=== PATIENT | male | born 1965 | race African-American/Black ===

== ENCOUNTER 2018-04-03 08:18 | Day surgery (SDC) | payer OTHER ==
[2018-04-03] VITALS (11 sets, daily range): BP systolic 106–143; BP diastolic 66–85
[~2018-04-03] VITALS: Ht 180.3 cm; Wt 122.5 kg
--- NOTE | 2018-04-03 07:01 | Pre-Procedure Note/Attestation ---
Pre-Procedure Note/Attestation Complete Prior to Procedure Planned Procedure: right Procedure Narrative: rt ankle hardware removal Indications for Procedure Pre-Operative Diagnosis: rt ankle syndesmotic screw Attestation I attest that I discussed the nature of the procedure; its benefits; risks and complications; and alternatives (and the risks and benefits of such alternatives ), prior to the procedure, with the patient (or the patient's legal energy conservation representative). I attest that, if there was a reasonable possibility of needing a blood transfusion, the patient (or the patient's legal energy conservation representative) was given the [facility] standardized written summary, pursuant to the [place] Blood Safety Act ([place] Health and Safety Code # 1645, as amended). I attest that I re-evaluated the patient just prior to the surgery and that there has been no change in the patient's H&P, except as documented below: none Avelino Zhu MD April 03, 2018 07:01
[~2018-04-03 08:18] MED LIST: AMLODIPINE BESY10 MG ORAL; PRAZOSIN HCL2 MG PO; ceFAZolin 1 GM premix IV ONE; ceFAZolin sod 2 GM in D5W 110 ML IVP ONE; oxyCONTIN 20mg tab ORAL SCH
[2018-04-03] MEDS ORDERED: Bacitracin 50000 Units Vial ONE (08:22)
[2018-04-03] MEDS ORDERED: Bupivacaine 0.5% Inj 30 ml vial INJ ONE (08:22)
[2018-04-03] MEDS ORDERED: NeoSporin Gu Irrig 1ml Amp IRRIG ONE (08:22)
[2018-04-03] MEDS ORDERED: EPINEPHrine 1mg/1ml Amp ONE (08:22)
[2018-04-03] MEDS ORDERED: fentaNYL 100 mcg/2 mL IV ONE (08:41)
[2018-04-03] MEDS ORDERED: Propofol 200mg/20ml IV ONE ×2 (08:41→09:29)
[2018-04-03] MEDS ORDERED: Dexamethasone 4mg/ml vial ONE (08:41)
[2018-04-03] MEDS ORDERED: Sterile Water Irrig 1000ml IRRIG ONE (09:00)
[2018-04-03] MEDS ORDERED: NS Irrig 1000ml ONE (09:00)
[2018-04-03] MEDS ORDERED: celeBREX 200mg Cap **SURGERY PATIENTS ONLY ORAL SCH ×2 (09:00)
[2018-04-03] MEDS ORDERED: Lidocaine 1% MPF 10mg/ml 5ml ONE (09:00)
[2018-04-03] MEDS ORDERED: LR 1000ml ONE (09:00)
--- NOTE | 2018-04-03 09:02 | Anethesia Preoperative Eval ---
Anesthesia Pre-op PMH/ROS General Date of Evaluation: April 03, 2018 Time of Evaluation: 08:45 Anesthesiologist: ASA Score: ASA 2 Mallampati Score Class I : Soft palate, uvula, fauces, pillars visible Class II: Soft palate, uvula, fauces visible Class III: Soft palate, base of uvula visible Class IV: Only hard plate visible Mallampati Classification: Class II Surgeon: brett Diagnosis: hardware right ankle Surgical Procedure: right ankle hardwre removal Anesthesia History: none Family History: no anesthesia problems Allergies: Coded Allergies: No Known Allergies (Unverified , 04/02/18) Medications: see eMAR Past Medical History Cardiovascular: Reports: HTN Pulmonary: Denies: asthma, COPD, STEPHAN, other Gastrointestinal/Genitourinary: Denies: GERD, CRI, ESRD, other Neurologic/Psychiatric: Denies: dementia, CVA, depression/anxiety, TIA, other Endocrine: Denies: DM, hypothyroidism, steroids, other HEENT: Denies: cataract (L), cataract (R), glaucoma, TABLE MOUNTAIN (L), TABLE MOUNTAIN (R), other Hematology/Immune: Denies: anemia, DVT, bleeding disorder, other Musculoskeletal/Integumentary: Denies: OA, RA, DJD, DDD, edema, other PSxH Narrative: rt.shoulder, left knee right ankle Anesthesia Pre-op Phys. Exam Physician Exam Last Vital Signs Date Time Temp Pulse Resp B/P (MAP) Pulse Ox O2 Delivery O2 Flow Rate FiO2 04/03/18 08:47 98.0 62 20 142/82 99 Room Air 98.0 Constitutional: NAD Cardiovascular: RRR Respiratory: CTA Gastrointestinal: S/NT/ND Airway Exam Mallampati Score: Class II MO: full ROM: full Teeth: other - upper front caps Dentures: no upper, no lower Anesthesia Pre-op A/P Risk Assessment & Plan Assessment: ASA 2 , okay to proceed Plan: GA, LMA Status Change Before Surgery: No Pre-Antibiotics Drug: ancef 2 gram Given Within 1 Hr of Incision: Yes Mago Alcantar M.D. April 03, 2018 09:02
[2018-04-03] MEDS ORDERED: Midazolam 2mg/2ml Inj ONE (09:05)
[2018-04-03] MEDS ORDERED: LR 1000ml 1,000 ML IVLG SCH (09:49)
[2018-04-03] MEDS ORDERED: Morphine Sulfate 4mg/ml Inj IVP SCH (10:00)
[2018-04-03] MEDS ORDERED: Labetalol 5mg/ml 20ml vial IV PRN (10:00)
[2018-04-03] MEDS ORDERED: DiphenhydrAMINE 50mg/ml Inj IVP PRN (10:00)
[2018-04-03] MEDS ORDERED: fentaNYL 100 mcg/2 mL IV PRN (10:00)
[2018-04-03] MEDS ORDERED: Ketorolac 30mg Inj ONE (10:03)
--- NOTE | 2018-04-03 10:10 | Brief Operative Note ---
Immediate Post Operative Note Operative Note Chief Complaint: rt ankle syndesmotic screw Pre-op Diagnosis: rt ankle syndesmotic screw Procedure: rt ankle syndesmotic screw removal Post-op Diagnosis: same as pre-op Findings: consistent w/pre-op dx studies Surgeon: md brett [employer]bicide Service Sales Representative: rose lópez Anesthesiologist: md bea Anesthesia: general, local Specimen: yes Complications: none Condition: stable Fluids: ns Estimated Blood Loss: minimal Drains: none Implant(s) used?: No Kelley López April 03, 2018 10:10
--- NOTE | 2018-04-03 10:26 | Immediate Post-Op Evaluation ---
Immediate Post-Op Evalulation Immediate Post-Op Evalulation Procedure: right ankle hardware removal Date of Evaluation: April 03, 2018 Time of Evaluation: 10:12 IV Fluids: LR 500ml Blood Products: 0 Estimated Blood Loss: 0 Urinary Output: 0 Blood Pressure Systolic: 135 Blood Pressure Diastolic: 79 Pulse Rate: 85 Respiratory Rate: 20 O2 Sat by Pulse Oximetry: 100 Temperature (Fahrenheit): 98.3 Pain Score (1-10): 1 Nausea: No Vomiting: No Complications none Patient Status: awake, patent, none Drug: ancef 2grams Given Within 1 Hr of Incision: Yes Time Given: 10:36 Mago Alcantar M.D. April 03, 2018 10:26
--- NOTE | 2018-04-03 12:00 | Operative Note - Dictated ---
DATE OF OPERATION: 04/03/2018 PREOPERATIVE DIAGNOSIS: Right ankle retained painful hardware including of a syndesmotic screw. POSTOPERATIVE DIAGNOSIS: Right ankle retained painful hardware including of a syndesmotic screw. PROCEDURE: Removal of a right ankle hardware (syndesmotic screw). SURGEON: Avelino Zhu M.D. HAUL DRIVER: Kelley Holder PA-C. ANESTHESIOLOGIST: Dr. Sarah. ANESTHESIA: LMA anesthesia. ESTIMATED BLOOD LOSS: Less than 20 mL. TOURNIQUET TIME: None. COMPLICATIONS: None. BRIEF HISTORY: The patient is a pleasant 52-year-old gentleman who had a right ankle fracture. A syndesmotic screw was placed and this was painful. After full discussion of the risks and benefits of the surgery and complications associated with it including infection, bleeding, neurovascular complication, possible malunion, possible nonunion, possible need for further surgery, possibility of superficial peroneal or sural nerve injury, he opted for surgical treatment as described above. OPERATIVE PROCEDURE: The patient was brought to the operative table and was placed supine. All pressure points were well padded. General LMA anesthesia was induced. Right neck was prepped and draped in usual sterile fashion. The area of the screw was injected with 0.5% Marcaine with epinephrine. An incision was made over the area. Using image intensifier, the screw was identified and the screw was removed without any complication. Wounds were thoroughly irrigated using copious amount of fluid. The skin was closed using horizontal mattress nylon sutures. Sterile dressing was applied and the patient was taken to recovery room in stable condition. All lap counts and instrument counts were correct. Final x-rays were obtained to demonstrate that the screw was completely removed. The rest of the hardware was left in as per preop discussion with the patient. Avelino Zhu M.D. DR: [place]on JOB#: [id number] CC:
--- NOTE | 2018-04-03 12:04 | 48 Hour Post Anesthesia Eval ---
Post Anesthesia Evaluation Procedure: right ankle hardware removal Date of Evaluation: April 03, 2018 Time of Evaluation: 11:25 Blood Pressure Systolic: 126 0: 74 Pulse Rate: 65 Respiratory Rate: 18 Temperature (Fahrenheit): 97.3 O2 Sat by Pulse Oximetry: 98 Airway: patent Nausea: No Vomiting: No Pain Intensity: 0 Hydration Status: adequate Mental Status/LOC: patient returned to baseline Post-Anesthesia Complications: none Follow-up care needed: ready to discharge Mago Alcantar M.D. April 03, 2018 12:04
--- NOTE | 2018-04-03 12:10 | Diagnostic Imaging Report ---
Indication: Postoperative status post hardware removal Technique: 3 views of the right ankle Comparison: One hour earlier Findings: Postoperative images confirm removal of previously demonstrated screw extending from the fibula into the tibia. A screw hole tract is still demonstrated. Sideplate and screws interstitial seen reducing old healed distal fibular fracture. Impression: Postoperative right ankle, as described
--- NOTE | 2018-04-03 13:37 | Diagnostic Imaging Report ---
Indication: Intraoperative Technique: Intraoperative images Comparison: none Findings: Intraoperative images document removal of a screw connecting the fibula with the tibia Impression: Intraoperative imaging, as described
[2018-04-03] MEDS ORDERED: Tylenol #3 tab (300mg/30mg) ORAL PRN (16:01)
[2018-04-03] MEDS ORDERED: Norco 5mg/325mg tab ORAL PRN (16:01)
[2018-04-03] MEDS ORDERED: D5 1/2NS 1,000 ML IV SCH (16:01)
== END 2018-04-03 11:50 | disposition home or self-care (01) ==
LOC: SUR 08:18
DX: T85.848A Pain due to other internal prosthetic devices, implants and grafts, initial encounter (principal); Y83.9 Surgical procedure, unspecified as the cause of abnormal reaction of the patient, or of later complication, without mention of misadventure at the time of the procedure; I10 Essential (primary) hypertension
CPT/HCPCS: 20680; 73600; 76000; J0171; J0690; J1100; J1885; J2250; J2405; J2704; J3010; J3490; J7120; 94003; 94150